=== PATIENT | male | born 1995 | race Caucasian/White ===

== ENCOUNTER 2020-10-04 10:16 | Emergency (ER) | payer OTHER ==
[~2020-10-04] VITALS: Ht 172.7 cm; Wt 71.4 kg
--- NOTE | 2020-10-04 10:55 | REP ---
INDICATION: R/O FORIEGN BODY GLASS COMPARISON: None. TECHNIQUE: AP, lateral, bilateral oblique views right and left hand. FINDINGS: Bandage material noted bilaterally. Underlying soft tissue injury cannot be excluded. No obvious foreign body. No obvious acute fracture or dislocation. IMPRESSION: No evidence for acute fracture or dislocation. No definite radiodense foreign body. <Electronically signed by Ghulam Chavira > 10/04/20 [id number]
[2020-10-04] MEDS ORDERED: BOOSTRIX/ADACEL VACCINE (DIPHTH/PERTUSS/ACELL/TETANUS) 0.5ML SYR IM ONE (12:00)
[2020-10-04] MEDS ORDERED: LIDOCAINE 1% SDV 30ML VIAL SC SCH (13:05)
[2020-10-04] MEDS ORDERED: LIDOCAINE 1% MDV 20ML VIAL As Ordered ONE (13:07)
[2020-10-04] MEDS ORDERED: NEOSPORIN TOP OINT 15GM TOP STA (13:39)
[2020-10-04] MEDS ORDERED: CEPH500C PO (14:13)
[2020-10-04 14:29] VITALS: BP 116/68
== END 2020-10-04 14:34 | disposition home or self-care (01) ==
LOC: M ED 10:16
DX: S61.411A Laceration without foreign body of right hand, initial encounter (principal); S61.412A Laceration without foreign body of left hand, initial encounter; W25.XXXA Contact with sharp glass, initial encounter; Y92.018 Other place in single-family (private) house as the place of occurrence of the external cause